=== PATIENT | female | born 1935 | race Caucasian/White ===

== ENCOUNTER 2017-09-21 19:09 | Inpatient (IN) | payer MEDICARE, OTHER ==
[~2017-09-21] VITALS: Ht 157.5 cm; Wt 79.1 kg
[~2017-09-21 19:09] MED LIST: ABAC300; ACET325 PO; AMIO200 PO; AMIODARONE HCL100 MG PO; AMLO5 PO; AMOCLA875 PO; ASCO500 PO; ASPI81EC PO; AZIT250 PO; Aspir-Low81 MG PO; Augmentin 875-1 EACH PO; BIOTIN5000 MCG PO; BISA10S PR; BISA5EC PO; CEFP200 PO; CEPH250A PO; CHOL10002 PO; CLOP75 PO; DEPLIN-ALGAL O1 EAC1 PO; DIGO.125 PO; DIPATR PO; DOCU100 PO; DOXY100 PO; DRON400T PO; DULO30 PO; DULO60 PO; ENTRESTO 24 MG1 EACH PO; FLUO.01TC TOP; FLUSAL2505 IH; FOLTANX TABLET1 EACH PO; FURO40 PO; Fish Oil 10001000 MG PO; Flagyl500 MG PO; GLIP2.5ER PO; HERBLAX PO; HYDACE5 PO; HYDACE5325 PO; HYDR1TAB94 PO; Hair, Skin & N1 EACH PO; IBUP400 PO; INSLI100I SC; Janumet 50-1,01 EACH PO; L-LYSINE500 MG PO; LEVSOD100 PO; LEVSOD125 PO; LEVSOD88 PO; LORA10ER PO; LOSA50 PO; MAGCIT300 PO; MAGOXI400 PO; METANX; METANX CAPSULE1 EACH PO; METANX PO; METF500 PO; METF500C PO; METO25 PO; METO25ER PO; METO50ER PO; METR500 PO; MIRALAX17 GM PO; MULVITA PO; MUPI2TC TOP; MUPI2TO TOP; MYRBETRIQ25 MG PO; NIAC500 PO; NIAC500ER PO; NITR.4SL SL; NITR.6SL SL; NYST100000 PO; NYST100SU MT; Novolog Fl100 UNIT/1 INJ; OMEP20ER PO; ONDA4ODT MM; OXYC5 PO; POLY17UD PO; POTA10T PO; POTA20PAC PO; POTCHL10ER PO; PROBIOTIC1 EAC1 PO; PROM12.5S PR; PROM25 PO; PROM25S PR; Pacerone100 MG PO; Prilosec Otc20 MG PO; RANI150 PO; ROBITUSSIN COU118 M1 PO; ROPI1 PO; SERT50 PO; SITA100T2 PO; SITA50T2 PO; TOCO1000 PO; VIT1CAPS12 PO; VITAMIN D-32000 UNIT PO; WARF2.5 PO; WARF5 PO; WARF7.5 PO; XARELTO20 MG PO; Zofran4 MG PO; Zovirax Cream 5%2 GM; [UNRECOGNIZED DRUG - OTHER] PO
[2017-09-21 19:38] LABS: BASOPHILS ABSOLUTE AUTO 0.03 K/mm3 (0.00-0.23); BASOPHILS PERCENT AUTO 0 % (0-2); EOSINOPHILS ABSOLUTE AUTO 0.16 K/mm3 (0.00-0.68); EOSINOPHILS PERCENT AUTO 2 % (0-6); Hematocrit 39.8 % (33.0-51.0); Hemoglobin 12.8 g/dL (11.5-16.0); IMMATURE GRAN ABSOLUTE AUTO 0.03 K/mm3 (0.00-0.10); IMMATURE GRAN PERCENT AUTO 0 % (0-1); LYMPHOCYTES ABSOLUTE AUTO 1.51 K/mm3 (0.84-5.20); LYMPHOCYTES PERCENT AUTO 20 % (21-46); MONOCYTES ABSOLUTE AUTO 0.86 K/mm3 (0.16-1.47); MONOCYTES PERCENT AUTO 11 % (4-13); Mean Corpuscular HGB 31.8 pg (26.0-34.0); Mean Corpuscular HGB Conc 32.2 g/dL (31.5-36.5); Mean Corpuscular Volume 99 fL (80-100); Mean Platelet Volume 10.4 fL (9.1-12.4); NEUTROPHILS ABSOLUTE AUTO 5.04 K/mm3 (1.96-9.15); NEUTROPHILS PERCENT AUTO 66 % (41-73); Platelet Count 206 K/mm3 (150-400); Red Blood Cell Count 4.02 M/mm3 (3.80-5.20); White Blood Cell Count 7.63 K/mm3 (4.00-11.30)
[2017-09-21 19:51] LABS: Alanine Aminotransfer (ALT/SGP 27 U/L (12-78); Albumin, Blood 3.6 g/dL (3.4-5.0); Alk Phos 96 U/L (50-136); Anion Gap 4 mmol/L (6-16); Aspartate Aminotrans (AST/SGOT 29 U/L (12-37); Bilirubin, Total 0.4 mg/dL (0.1-1.0); Blood Urea Nitrogen 21 mg/dL (8-24); Bun/Creatinine Ratio 30.8 (12.0-20.0); CO2, Blood 29 mmol/L (21-32); Calcium, Blood 8.8 mg/dL (8.5-10.1); Chloride, Blood 108 mmol/L (98-108); Creatinine, Blood 0.68 mg/dL (0.40-1.00); Globulin, Blood 3.7 g/dL (2.2-4.0); Glomerular Filtration Rate >60 (60-); Glucose, Blood 196 mg/dL (70-99); Potassium, Blood 4.6 mmol/L (3.5-5.5); Sodium, Blood 141 mmol/L (136-145); Total Protein, Blood 7.3 g/dL (6.4-8.2); Troponin I <0.015 ng/mL (0.000-0.040)
[2017-09-21 21:26] LABS: Source, Urine Clean Catch
[2017-09-21 21:40] LABS: Appearance, Urine Clear (Clear); Bilirubin, Urine Neg (Neg); Blood, Urine Neg (Neg); Color, Urine Yellow (P-Yellow); Glucose Qualitative, Urine Neg (Neg); Ketones, Urine Neg (Neg); Leukocyte Esterase, Urine 1+ (Neg); Nitrite, Urine Neg (Neg); Protein, Urine Neg (Neg); Specific Gravity, Urine 1.015 (1.003-1.022); Urobilinogen, Urine 1+ (Normal); pH, Urine 6.5 (5.0-8.0)
[2017-09-21 21:41] LABS: Bacteria Few /hpf; Red Blood Cells, Urine 0-2 /hpf (0-2); Squamous Epithelial Cells Few /hpf (Few)
[2017-09-22 03:43] LABS: BASOPHILS ABSOLUTE AUTO 0.03 K/mm3 (0.00-0.23); BASOPHILS PERCENT AUTO 0 % (0-2); EOSINOPHILS ABSOLUTE AUTO 0.21 K/mm3 (0.00-0.68); EOSINOPHILS PERCENT AUTO 3 % (0-6); Hematocrit 36.2 % (33.0-51.0); Hemoglobin 11.7 g/dL (11.5-16.0); IMMATURE GRAN ABSOLUTE AUTO 0.02 K/mm3 (0.00-0.10); IMMATURE GRAN PERCENT AUTO 0 % (0-1); LYMPHOCYTES ABSOLUTE AUTO 1.76 K/mm3 (0.84-5.20); LYMPHOCYTES PERCENT AUTO 24 % (21-46); MONOCYTES ABSOLUTE AUTO 0.96 K/mm3 (0.16-1.47); MONOCYTES PERCENT AUTO 13 % (4-13); Mean Corpuscular HGB 31.6 pg (26.0-34.0); Mean Corpuscular HGB Conc 32.3 g/dL (31.5-36.5); Mean Corpuscular Volume 98 fL (80-100); Mean Platelet Volume 10.7 fL (9.1-12.4); NEUTROPHILS PERCENT AUTO 60 % (41-73); Platelet Count 194 K/mm3 (150-400); RDW Coefficient Variation 14.1 % (11.7-14.2); RDW Standard Deviation 50.2 fL (35.1-46.3); White Blood Cell Count 7.38 K/mm3 (4.00-11.30)
[2017-09-22 04:02] LABS: Alanine Aminotransfer (ALT/SGP 22 U/L (12-78); Albumin, Blood 3.1 g/dL (3.4-5.0); Albumin/Globulin Ratio 0.9 (0.8-1.8); Alk Phos 76 U/L (50-136); Anion Gap 6 mmol/L (6-16); Aspartate Aminotrans (AST/SGOT 16 U/L (12-37); Bilirubin, Total 0.5 mg/dL (0.1-1.0); Blood Urea Nitrogen 18 mg/dL (8-24); Bun/Creatinine Ratio 29.4 (12.0-20.0); CO2, Blood 30 mmol/L (21-32); Calcium, Blood 8.3 mg/dL (8.5-10.1); Chloride, Blood 108 mmol/L (98-108); Creatinine, Blood 0.61 mg/dL (0.40-1.00); Globulin, Blood 3.5 g/dL (2.2-4.0); Glomerular Filtration Rate >60 (60-); Glucose, Blood 102 mg/dL (70-99); Potassium, Blood 4.1 mmol/L (3.5-5.5); Sodium, Blood 144 mmol/L (136-145); Total Protein, Blood 6.6 g/dL (6.4-8.2)
[2017-09-22 06:09] LABS: U Amphetamine Screen Not Detected; U Barbituate Screen Not Detected; U Benzodiazapine Screen Not Detected; U Buprenorphine Screen Not Detected; U Cannabinoids Screen Not Detected; U Cocaine Screen Not Detected; U Methadone Screen Not Detected; U Methamphetamine Screen Not Detected; U Opiates Screen Not Detected; U Oxycodone Screen Not Detected; U Phencyclidine Screen Not Detected; U Propoxyphene Screen Not Detected
[2017-09-22] MEDS ORDERED: [UNRECOGNIZED DRUG - OTHER] PO (06:17)
== END 2017-09-23 15:46 | disposition home or self-care (01) | DRG 640 ==
LOC: ER 19:09 → ICUW 22:38
PROVIDERS: Internal Medicine; Physician Assistant
DX: E86.0 Dehydration (principal); G93.40 Encephalopathy, unspecified; N39.0 Urinary tract infection, site not specified; J98.11 Atelectasis; I50.32 Chronic diastolic (congestive) heart failure; B96.20 Unspecified Escherichia coli [E. coli] as the cause of diseases classified elsewhere; I48.2 Chronic atrial fibrillation; I25.10 Atherosclerotic heart disease of native coronary artery without angina pectoris; J44.9 Chronic obstructive pulmonary disease, unspecified; E03.9 Hypothyroidism, unspecified; E11.51 Type 2 diabetes mellitus with diabetic peripheral angiopathy without gangrene; G47.33 Obstructive sleep apnea (adult) (pediatric); Z86.73 Personal history of transient ischemic attack (TIA), and cerebral infarction without residual deficits; Z95.1 Presence of aortocoronary bypass graft; Z95.5 Presence of coronary angioplasty implant and graft; Z95.0 Presence of cardiac pacemaker; Z79.84 Long term (current) use of oral hypoglycemic drugs; Z79.02 Long term (current) use of antithrombotics/antiplatelets; Z79.82 Long term (current) use of aspirin; Z79.899 Other long term (current) drug therapy; Z88.1 Allergy status to other antibiotic agents; Z88.8 Allergy status to other drugs, medicaments and biological substances
CPT/HCPCS: 36415; 70450; 71046; 80053; 81001; 82947; 83880; 84484; 85025; 87077; 87086; 87186; 93005; 93010; 96374; 97116; 97161; 97166; 97530; 97535; 99285; G8978; G8979; G8987; G8988; J0696; J1650; P9612

== ENCOUNTER 2017-10-24 10:09 | Emergency (ER) | payer MEDICARE, OTHER ==
[~2017-10-24] VITALS: Ht 157.5 cm; Wt 81.4 kg
[2017-10-24 10:58] LABS: BASOPHILS ABSOLUTE AUTO 0.02 K/mm3 (0.00-0.23); BASOPHILS PERCENT AUTO 0 % (0-2); EOSINOPHILS ABSOLUTE AUTO 0.21 K/mm3 (0.00-0.68); EOSINOPHILS PERCENT AUTO 3 % (0-6); Hematocrit 38.3 % (33.0-51.0); Hemoglobin 12.4 g/dL (11.5-16.0); IMMATURE GRAN ABSOLUTE AUTO 0.05 K/mm3 (0.00-0.10); IMMATURE GRAN PERCENT AUTO 1 % (0-1); LYMPHOCYTES ABSOLUTE AUTO 0.97 K/mm3 (0.84-5.20); LYMPHOCYTES PERCENT AUTO 12 % (21-46); MONOCYTES ABSOLUTE AUTO 0.94 K/mm3 (0.16-1.47); MONOCYTES PERCENT AUTO 12 % (4-13); Mean Corpuscular HGB 32.1 pg (26.0-34.0); Mean Corpuscular HGB Conc 32.4 g/dL (31.5-36.5); Mean Corpuscular Volume 99 fL (80-100); Mean Platelet Volume 10.4 fL (9.1-12.4); NEUTROPHILS ABSOLUTE AUTO 6.01 K/mm3 (1.96-9.15); NEUTROPHILS PERCENT AUTO 73 % (41-73); Platelet Count 181 K/mm3 (150-400); RDW Coefficient Variation 13.9 % (11.7-14.2); RDW Standard Deviation 50.9 fL (35.1-46.3); Red Blood Cell Count 3.86 M/mm3 (3.80-5.20)
[2017-10-24] MEDS ORDERED: GLIP2.5ER PO (11:02)
[2017-10-24] MEDS ORDERED: L-Lysine500 M1 (11:03)
[2017-10-24] MEDS ORDERED: NITR.4SL SL (11:04)
[2017-10-24] MEDS ORDERED: LEVSOD100 PO (11:05)
[2017-10-24 11:11] LABS: Alanine Aminotransfer (ALT/SGP 23 U/L (12-78); Albumin, Blood 3.2 g/dL (3.4-5.0); Albumin/Globulin Ratio 0.9 (0.8-1.8); Alk Phos 75 U/L (50-136); Anion Gap 5 mmol/L (6-16); Aspartate Aminotrans (AST/SGOT 17 U/L (12-37); Bilirubin, Total 0.9 mg/dL (0.1-1.0); Blood Urea Nitrogen 13 mg/dL (8-24); CO2, Blood 30 mmol/L (21-32); Calcium, Blood 8.5 mg/dL (8.5-10.1); Chloride, Blood 106 mmol/L (98-108); Creatinine, Blood 0.62 mg/dL (0.40-1.00); Globulin, Blood 3.6 g/dL (2.2-4.0); Glomerular Filtration Rate >60 (60-); Glucose, Blood 121 mg/dL (70-99); Potassium, Blood 4.1 mmol/L (3.5-5.5); Sodium, Blood 141 mmol/L (136-145); Total Protein, Blood 6.8 g/dL (6.4-8.2)
[2017-10-24] MEDS ORDERED: Prednisone20 MG PO (13:20)
== END 2017-10-24 14:40 | disposition home or self-care (01) ==
LOC: ER 10:09
PROVIDERS: Emergency Medicine
DX: J44.1 Chronic obstructive pulmonary disease with (acute) exacerbation (principal); Z88.8 Allergy status to other drugs, medicaments and biological substances; Z91.048 Other nonmedicinal substance allergy status; Z88.1 Allergy status to other antibiotic agents; Z79.899 Other long term (current) drug therapy; Z79.82 Long term (current) use of aspirin; Z79.84 Long term (current) use of oral hypoglycemic drugs; Z86.73 Personal history of transient ischemic attack (TIA), and cerebral infarction without residual deficits; I48.91 Unspecified atrial fibrillation; I50.9 Heart failure, unspecified
CPT/HCPCS: 36415; 71046; 80053; 83880; 85025; 93005; 93010; 94640; J1940; J2930

== ENCOUNTER 2017-12-18 16:01 | Emergency (ER) | payer MEDICARE, OTHER ==
[~2017-12-18] VITALS: Ht 157.5 cm; Wt 79.8 kg
[~2017-12-18 16:01] MED LIST changes: +L-Lysine500 M1; +Prednisone20 MG PO
[2017-12-18 16:30] LABS: BASOPHILS ABSOLUTE AUTO 0.03 K/mm3 (0.00-0.23); BASOPHILS PERCENT AUTO 0 % (0-2); EOSINOPHILS ABSOLUTE AUTO 0.17 K/mm3 (0.00-0.68); EOSINOPHILS PERCENT AUTO 2 % (0-6); Hematocrit 40.9 % (33.0-51.0); Hemoglobin 13.2 g/dL (11.5-16.0); IMMATURE GRAN ABSOLUTE AUTO 0.04 K/mm3 (0.00-0.10); IMMATURE GRAN PERCENT AUTO 1 % (0-1); LYMPHOCYTES ABSOLUTE AUTO 1.19 K/mm3 (0.84-5.20); LYMPHOCYTES PERCENT AUTO 16 % (21-46); MONOCYTES ABSOLUTE AUTO 0.92 K/mm3 (0.16-1.47); MONOCYTES PERCENT AUTO 12 % (4-13); Mean Corpuscular HGB 31.5 pg (26.0-34.0); Mean Corpuscular HGB Conc 32.3 g/dL (31.5-36.5); Mean Corpuscular Volume 98 fL (80-100); Mean Platelet Volume 10.3 fL (9.1-12.4); NEUTROPHILS ABSOLUTE AUTO 5.29 K/mm3 (1.96-9.15); NEUTROPHILS PERCENT AUTO 69 % (41-73); Platelet Count 229 K/mm3 (150-400); RDW Coefficient Variation 14.2 % (11.7-14.2); Red Blood Cell Count 4.19 M/mm3 (3.80-5.20); White Blood Cell Count 7.64 K/mm3 (4.00-11.30)
[2017-12-18 16:55] LABS: Alanine Aminotransfer (ALT/SGP 29 U/L (12-78); Albumin, Blood 3.7 g/dL (3.4-5.0); Albumin/Globulin Ratio 0.9 (0.8-1.8); Alk Phos 84 U/L (50-136); Anion Gap 7 mmol/L (6-16); Aspartate Aminotrans (AST/SGOT 20 U/L (12-37); Bilirubin, Total 0.6 mg/dL (0.1-1.0); Blood Urea Nitrogen 24 mg/dL (8-24); Bun/Creatinine Ratio 31.1 (12.0-20.0); CO2, Blood 28 mmol/L (21-32); Chloride, Blood 105 mmol/L (98-108); Creatinine, Blood 0.77 mg/dL (0.40-1.00); Globulin, Blood 3.9 g/dL (2.2-4.0); Glomerular Filtration Rate >60 (60-); Glucose, Blood 115 mg/dL (70-99); Potassium, Blood 4.1 mmol/L (3.5-5.5); Sodium, Blood 140 mmol/L (136-145); Total Protein, Blood 7.6 g/dL (6.4-8.2)
== END 2017-12-18 17:44 | disposition left against medical advice (07) ==
LOC: ER 16:01
PROVIDERS: Nurse Practitioner Family
DX: Z53.21 Procedure and treatment not carried out due to patient leaving prior to being seen by health care provider (principal)
CPT/HCPCS: 36415; 80053; 83690; 85025

== ENCOUNTER → 2018-06-08 | Outpatient (CLI) | payer MEDICARE, OTHER ==
[2018-06-11 08:19] LABS: Stool Occult Blood Guaiac 1 Neg (Neg)
[2018-06-11 08:20] LABS: Stool Occult Blood Guaiac 2 Neg (Neg)
== END | disposition home or self-care (01) ==
LOC: LAB SHORT 08:00 → LAB 08:00
PROVIDERS: Internal Medicine Gastroenterology
DX: K57.30 Diverticulosis of large intestine without perforation or abscess without bleeding (principal); R10.31 Right lower quadrant pain; Z86.010 Personal history of colon polyps
CPT/HCPCS: 82270

== ENCOUNTER → 2018-07-03 | Outpatient (CLI) | payer MEDICARE, OTHER | END | disposition home or self-care (01) | LOC: LAB SHORT 17:50 → LAB 17:50 | DX: R30.0 Dysuria (principal) | CPT/HCPCS: 87077; 87086; 87186 ==

== ENCOUNTER → 2018-07-28 | Outpatient (CLI) | payer MEDICARE, OTHER | END | disposition home or self-care (01) | LOC: LAB 12:01 → LAB SHORT 12:01 | DX: R30.0 Dysuria (principal) | CPT/HCPCS: 87077; 87086; 87186 ==

== ENCOUNTER 2018-09-06 15:16 | Observation (INO) | payer MEDICARE, OTHER ==
[~2018-09-06] VITALS: Ht 157.5 cm; Wt 79.9 kg
[~2018-09-06 15:16] MED LIST changes: -L-Lysine500 M1; +L-Lysine500 M1 PO
[2018-09-06 16:05] LABS: BASOPHILS ABSOLUTE AUTO 0.03 K/mm3 (0.00-0.23); BASOPHILS PERCENT AUTO 0 % (0-2); EOSINOPHILS ABSOLUTE AUTO 0.17 K/mm3 (0.00-0.68); EOSINOPHILS PERCENT AUTO 2 % (0-6); Hematocrit 38.6 % (33.0-51.0); IMMATURE GRAN ABSOLUTE AUTO 0.03 K/mm3 (0.00-0.10); IMMATURE GRAN PERCENT AUTO 0 % (0-1); LYMPHOCYTES ABSOLUTE AUTO 1.29 K/mm3 (0.84-5.20); LYMPHOCYTES PERCENT AUTO 16 % (21-46); MONOCYTES ABSOLUTE AUTO 0.79 K/mm3 (0.16-1.47); MONOCYTES PERCENT AUTO 10 % (4-13); Mean Corpuscular HGB 32.3 pg (26.0-34.0); Mean Corpuscular HGB Conc 31.1 g/dL (31.5-36.5); Mean Corpuscular Volume 104 fL (80-100); Mean Platelet Volume 10.8 fL (9.1-12.4); NEUTROPHILS ABSOLUTE AUTO 5.99 K/mm3 (1.96-9.15); NEUTROPHILS PERCENT AUTO 72 % (41-73); Platelet Count 190 K/mm3 (150-400); RDW Coefficient Variation 13.6 % (11.7-14.2); Red Blood Cell Count 3.72 M/mm3 (3.80-5.20)
[2018-09-06 16:14] LABS: Alanine Aminotransfer (ALT/SGP 27 U/L (12-78); Albumin, Blood 3.4 g/dL (3.4-5.0); Albumin/Globulin Ratio 0.9 (0.8-1.8); Alk Phos 84 U/L (50-136); Anion Gap 3 mmol/L (6-16); Aspartate Aminotrans (AST/SGOT 21 U/L (12-37); Bilirubin, Total 0.6 mg/dL (0.1-1.0); Blood Urea Nitrogen 17 mg/dL (8-24); Bun/Creatinine Ratio 26.9 (12.0-20.0); CO2, Blood 31 mmol/L (21-32); Calcium, Blood 8.6 mg/dL (8.5-10.1); Chloride, Blood 105 mmol/L (98-108); Creatinine, Blood 0.63 mg/dL (0.40-1.00); Globulin, Blood 3.7 g/dL (2.2-4.0); Glomerular Filtration Rate >60 (60-); Glucose, Blood 155 mg/dL (70-99); Potassium, Blood 3.9 mmol/L (3.5-5.5); Sodium, Blood 139 mmol/L (136-145); Total Protein, Blood 7.1 g/dL (6.4-8.2); Troponin I <0.015 ng/mL (0.000-0.040)
[2018-09-06] MEDS ORDERED: ESCI10 PO (17:56)
[2018-09-07 00:35] LABS: CPK Creatine Kinase 61 U/L (26-193); Troponin I <0.015 ng/mL (0.000-0.040)
--- NOTE | 2018-09-07 02:59 | NUR ---
ADMISSION: REPORT RECIEVED FROM ANTHONY SEGOVIA. PT TO UNIT AT ABOUT 2230. UPON ASSESSMENT PT IS IN NO VISABLE DISTRESS, 2 ASSIST TRANSFER FROM [facility] TO BED. ASSISTED BY WEB PRESS OPERATOR ASSISTANT AND ELSIE GARNER. PT IS A/O, VSS, DENIED CHEST PAIN OR SOB. REPORTS SOME BACK PAIN THAT IS TOLERABLE. RESPONSE TO SOME QUESTIONS IN SLOW, PT REPORTS TIRED FROM THE DAY. ADMISSION CHARTING COMPLETED, TELE VERIFIED BY ELSIE GARNER. BED ALARM ON FOR SAFETY, WILL CTM PT STATUS
--- NOTE | 2018-09-07 04:29 | NUR ---
SUMMARY: NO CHANGE SINCE ADMIT. VSS, PT IS A/O. USING BEDPAN TO VOID OR IS INCOTINANT. HAS DENIED CHEST PAIN, TELE WNL. WEARING 1L NC FOR SLEEP, SPO2 WNL. NITRO CREAM AT L CHEST TO BE REMOVED AT 1625 TODAY, WILL MAKE DAY RN AWARE. PT USING CALL LIGHT NO SAFETY CONCERNS AT THIS TIME.
[2018-09-07 07:29] LABS: Hemoglobin 11.3 g/dL (11.5-16.0); Mean Corpuscular HGB 31.6 pg (26.0-34.0); Mean Corpuscular HGB Conc 31.4 g/dL (31.5-36.5); Mean Corpuscular Volume 101 fL (80-100); Mean Platelet Volume 10.1 fL (9.1-12.4); Platelet Count 173 K/mm3 (150-400); RDW Coefficient Variation 13.5 % (11.7-14.2); Red Blood Cell Count 3.58 M/mm3 (3.80-5.20); White Blood Cell Count 6.55 K/mm3 (4.00-11.30)
[2018-09-07 07:49] LABS: Alanine Aminotransfer (ALT/SGP 23 U/L (12-78); Albumin, Blood 3.2 g/dL (3.4-5.0); Alk Phos 65 U/L (50-136); Anion Gap 4 mmol/L (6-16); Aspartate Aminotrans (AST/SGOT 15 U/L (12-37); Bilirubin, Total 0.7 mg/dL (0.1-1.0); Blood Urea Nitrogen 17 mg/dL (8-24); Bun/Creatinine Ratio 26.1 (12.0-20.0); CO2, Blood 32 mmol/L (21-32); Calcium, Blood 8.6 mg/dL (8.5-10.1); Chloride, Blood 107 mmol/L (98-108); Creatinine, Blood 0.65 mg/dL (0.40-1.00); Globulin, Blood 3.3 g/dL (2.2-4.0); Glomerular Filtration Rate >60 (60-); Glucose, Blood 109 mg/dL (70-99); Potassium, Blood 3.9 mmol/L (3.5-5.5); Sodium, Blood 143 mmol/L (136-145); Total Protein, Blood 6.5 g/dL (6.4-8.2)
[2018-09-07 07:53] LABS: CPK Creatine Kinase 67 U/L (26-193); Troponin I <0.015 ng/mL (0.000-0.040)
[2018-09-07 09:44] LABS: Source, Urine Clean Catch
[2018-09-07 09:49] LABS: Bilirubin, Urine Neg (Neg); Blood, Urine Neg (Neg); Glucose Qualitative, Urine Neg (Neg); Ketones, Urine Neg (Neg); Leukocyte Esterase, Urine 2+ (Neg); Nitrite, Urine Pos (Neg); Protein, Urine 1+ (Neg); Specific Gravity, Urine 1.015 (1.003-1.022); Urobilinogen, Urine NORM (Normal); pH, Urine 6.5 (5.0-8.0)
[2018-09-07 10:11] LABS: Appearance, Urine Hazy (Clear); Bacteria Many /hpf; Color, Urine Yellow (P-Yellow); Red Blood Cells, Urine Not Seen /hpf (0-2); Squamous Epithelial Cells Mod /hpf (Few)
--- NOTE | 2018-09-07 17:59 | NUR ---
SHE SAT UP IN THE CHAIR X2 TODAY. SHE HAS NAPPED OFF AND ON AND HAD A FEW VIOSITORS COME AND GO. SHE IS A&O. UA WAS SENT. IV ROCEPHIN HAS BEEN STARTED. CBG'S STARTED AT DINNER. IT WAS WNL. SHE DENIES PAIN OR SOB. BNP IS 487. A STRESS TEST HAS BEEN ORDERED. IT WILL BE TOMORROW IF SHE AGREES TO IT. SHE ONLY REMEMBERS ONE BACK IN 2002. SHE SAYS SHE HAD A REACTION TO IT AND ENDED UP IN ICU. 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 THIS HAS BEEN PASSED ON TO . SHE WILL DISCUSS IT WITH HER TOMORROW. CONTACT ISOLATION IN PLACE FOR RECENT ESBL IN THE URINE. TELE IS NSR WITH A FIRST DEGREE BLOCK. SHE HAS A PACEMAKER.WILL NPO HER EXCEPT WATER IN EARLY AM FOR POSSIBLE STRESS TEST. SHE HAS HAD HER O2 OFF THROUGHOUT THE DAY. SHE WEARS 2L MOSTLY AT NIGHT.
--- NOTE | 2018-09-08 04:52 | NUR ---
SUMMARY: PT A/O, PLEASANT AND SPECIFIES NEEDS. SHE C/O HAND, ARM, LEG, FEET PAIN THIS AM AND NEW ORDER FOR TYLENOL PRN RECIEVED, MED GIVEN FOR GOOD EFFECT. SHE WAS UP W/1ASSIST AND FWW TO BS FOR VOID. MEDS TOLERATED IN APPLESAUCE PER PT REQUEST. SHE REMAINS ON 2L O2 AT HS PER HOME DOSE. PT DENIED CP AND S/S CARDIAC DISTRESS. PT WAS NSR W/1ST DEGRESS BLOCK AT 60'S BPM W/PM NOTED BUT NO PACING SPIKES OBSERVED PER STAFF TOXICOLOGIST. MEPILEX INTACT TO R.HEEL FOR SBD PREVENTION. SHE WAS MADE NPO EXCEPT MEDS THIS AM FOR POSSIBLE STRESS TEST TODAY. PT HAS BEEN REFUSING D/T STATED REACTION W/PREVIOUS TEST IN 2002. AND [facility] TEAM TO F/U AND HAVE DISCUSSION SINCE DAY THOUGHT PT HAD ONE W/O EVENT SINCE. NO ACUTE CHANGES, VSS/AFEBRILE. WILL MONITOR AND REPORT TO DAY RN.
[2018-09-08 05:14] LABS: Albumin, Blood 3.3 g/dL (3.4-5.0); Anion Gap 7 mmol/L (6-16); Blood Urea Nitrogen 17 mg/dL (8-24); Bun/Creatinine Ratio 24.2 (12.0-20.0); CO2, Blood 30 mmol/L (21-32); Calcium, Blood 8.6 mg/dL (8.5-10.1); Chloride, Blood 105 mmol/L (98-108); Glomerular Filtration Rate >60 (60-); Glucose, Blood 100 mg/dL (70-99); Phosphorus, Blood 3.8 mg/dL (2.5-4.9); Sodium, Blood 142 mmol/L (136-145)
--- NOTE | 2018-09-08 09:19 | NUR ---
DR KINCAID IN TO SEE PATIEINT, DISCUSSING AND EDUCATED PT ON STRESS TEST, PT CONTINUES TO DECLINE. NEW ORDERS FROM DR KINCAID FOR CARDIOLOGY CONSULT, NOTIFIED AT 0917 ON 09/08/18
--- NOTE | 2018-09-08 10:52 | NUR ---
DR YNE AT BEDSIDE, NEW VERBAL ORDERS FOR ECHO AND IMDUR PO 60MG DAILY, START NOW. PT CONTINUES TO REFUSE STRESS TEST. WILL CONTINUE TO MONITOR
--- NOTE | 2018-09-08 12:27 | NUR ---
ECHOCARDIOGRAM COMPLETE
--- NOTE | 2018-09-08 21:04 | NUR ---
SHIFT SUMMARY PT A&OX4. CALM AND COOPERATIVE WITH CARE. PT RESTING IN BED DURING SHIFT, 1 PERSON ASSIST WITH FWW TO BSC. PT DENIES CHEST PAIN AND DIZZINESS. SOB WITH EXERITON, ON RA DURING DAY >90% ON RA. PT DENIES N/V DURING SHIFT. PT REFUSING STRESS TEST, CANCELED AND DR KINCAID NOTIFIED. NEW ORDERS FOR CARDIOLOGY CONSULT, DR YEN AT BEDSIDE DURING SHIFT. PT AND SPOUSE DISCUSSED OPTIONS AND HAVE DECIDED TO CONTINUE WITH MEDICATION MANAGEMENT AND DISCUSS INVASIVE PROCEDURES WITH THEIR CURRENT BUILDING CARPENTER HELPER OUTPATIENT, DR KINCAID AND DR YEN NOTIFIED. PT RECEIVING IV ANTIBIOTICS. PT STARTED ON IMDUR THIS AM. ECHO COMPLETED DURING SHIFT. VSS. NO OTHER ACUTE CHANGES NOTED DURING SHIFT. REPORT GIVEN TO ONCOMING RN.
--- NOTE | 2018-09-09 05:27 | NUR ---
SUMMARY: A/OX4, PLEASANT AND COOPERATIVE W/CARE AND CALLS APPROPRIATELY. PT IS 1 ASSIST [place] [facility] SHE OCCASIONALY HAS URGE INCONTINENCE W/ATTENDS CHANGED PRN. SHE'S DENIED CP, NAUSEA, DIZZINESS AND ALL OTHER S/S CARDIAC DISTRESS AND REMAINS IN NSR AT 60'S BPM PER TELEMETRY. PT CONT'S ON 2L O2 AT HS PER HOME DOSE, RESPS E/U AND SPO2 WNL. SHE REFUSED STRESS TEST DURING DAY BUT HAD ECHO DONE AND CX'D W/ WHO STARTED HER ON IMDUR. SHE WILL F/U W/ AND OUPATIENT PER HER PREFERENCE TO DETERMINE FURTHER INTERVENTIONS. SHE DENIED COMPLAINTS OTHER THEN RECIEVING TYLENOL PRN FOR TOLERABLE CONTROL OF NEUROPATHY RELATED PAIN. NO ACUTE CHANGES THIS SHIFT, VSS/AFEBRILE. WILL MONITOR AND REPORT TO DAY RN.
[2018-09-09] MEDS ORDERED: Acidophilus1 EAC1 PO (12:01)
[2018-09-09] MEDS ORDERED: CEFU500T30 PO (12:01)
[2018-09-09] MEDS ORDERED: Isosorbide Mono30 MG PO (12:02)
--- NOTE | 2018-09-09 13:19 | NUR ---
PT GETTING READY TO DISCHARGE TO HOME. ALL MEDS [facility]XED TO [facility]. VERY SUPPORTIVE WHOM MANAGES PT MEDICATIONS.
== END 2018-09-09 13:30 | disposition home or self-care (01) ==
LOC: ER 15:16 → MEDS 15:17 → ENPENDDIS 09-09 11:00 → MEDS 09-09 13:30
PROVIDERS: Emergency Medicine; Internal Medicine; ADMIT Internal Medicine
DX: R07.9 Chest pain, unspecified (principal); N39.0 Urinary tract infection, site not specified; I48.2 Chronic atrial fibrillation; B96.20 Unspecified Escherichia coli [E. coli] as the cause of diseases classified elsewhere; R10.9 Unspecified abdominal pain; I25.10 Atherosclerotic heart disease of native coronary artery without angina pectoris; I73.9 Peripheral vascular disease, unspecified; I50.32 Chronic diastolic (congestive) heart failure; E11.9 Type 2 diabetes mellitus without complications; E03.9 Hypothyroidism, unspecified; F32.9 Major depressive disorder, single episode, unspecified; J44.9 Chronic obstructive pulmonary disease, unspecified; G47.33 Obstructive sleep apnea (adult) (pediatric); I48.0 Paroxysmal atrial fibrillation; J96.11 Chronic respiratory failure with hypoxia; Z95.1 Presence of aortocoronary bypass graft; Z79.899 Other long term (current) drug therapy; Z79.02 Long term (current) use of antithrombotics/antiplatelets; Z79.84 Long term (current) use of oral hypoglycemic drugs; Z95.5 Presence of coronary angioplasty implant and graft; Z86.73 Personal history of transient ischemic attack (TIA), and cerebral infarction without residual deficits
CPT/HCPCS: 36415; 71046; 80053; 80069; 81001; 82550; 82947; 83880; 84484; 85025; 85027; 87077; 87086; 87186; 93005; 93010; 93306; 99285-25; J0696; J1650; J7050

== ENCOUNTER → 2018-11-20 | Outpatient (CLI) | payer MEDICARE, OTHER ==
[~2018-11-20] MED LIST changes: +Acidophilus1 EAC1 PO; +BUME1 PO; +CEFU500T30 PO; +ESCI5 PO; +FOLTANX RF CAP1 EACH PO; +Isosorbide Mono30 MG PO; +NYSTRITC TOP; +PRESERVISION A1 EACH PO; +Ultram50 MG PO; +XARELTO2.5 MG PO
[2018-11-20 13:55] LABS: Source, Urine Clean Catch
[2018-11-20 14:09] LABS: Bilirubin, Urine Neg (Neg); Blood, Urine Neg (Neg); Glucose Qualitative, Urine 1+ (Neg); Ketones, Urine Neg (Neg); Leukocyte Esterase, Urine Neg (Neg); Nitrite, Urine Neg (Neg); Protein, Urine Neg (Neg); Specific Gravity, Urine 1.015 (1.003-1.022); Urobilinogen, Urine NORM (Normal)
[2018-11-20 15:27] LABS: Appearance, Urine Clear (Clear); Color, Urine Yellow (P-Yellow)
== END ==
LOC: LAB SHORT 13:54 → LAB 13:54 → EDSTATUS 11-21 11:50 → LAB FUT 11-21 11:50
DX: R30.0 Dysuria (principal)
CPT/HCPCS: 81003; 87077; 87086; 87186

== ENCOUNTER 2018-11-26 15:08 | Emergency (ER) | payer MEDICARE, OTHER ==
[~2018-11-26] VITALS: Ht 157.5 cm; Wt 80.7 kg
[~2018-11-26 15:08] MED LIST changes: -Ultram50 MG PO
== END 2018-11-26 19:38 | disposition home or self-care (01) ==
LOC: ER 15:08
DX: I50.9 Heart failure, unspecified (principal); I48.91 Unspecified atrial fibrillation; I25.2 Old myocardial infarction; I25.10 Atherosclerotic heart disease of native coronary artery without angina pectoris; E11.40 Type 2 diabetes mellitus with diabetic neuropathy, unspecified; E03.9 Hypothyroidism, unspecified; Z87.440 Personal history of urinary (tract) infections; Z95.1 Presence of aortocoronary bypass graft; Z88.8 Allergy status to other drugs, medicaments and biological substances; Z79.899 Other long term (current) drug therapy
CPT/HCPCS: 71046; 83880; 84484; 93005; 93010; 96374; 99285-25; J1940

== ENCOUNTER → 2018-11-26 | Outpatient (CLI) | payer MEDICARE, OTHER ==
[2018-11-26 14:03] LABS: BASOPHILS ABSOLUTE AUTO 0.03 K/mm3 (0.00-0.23); BASOPHILS PERCENT AUTO 0 % (0-2); EOSINOPHILS ABSOLUTE AUTO 0.24 K/mm3 (0.00-0.68); EOSINOPHILS PERCENT AUTO 3 % (0-6); Hematocrit 35.8 % (33.0-51.0); Hemoglobin 11.8 g/dL (11.5-16.0); IMMATURE GRAN ABSOLUTE AUTO 0.04 K/mm3 (0.00-0.10); IMMATURE GRAN PERCENT AUTO 0 % (0-1); LYMPHOCYTES ABSOLUTE AUTO 1.32 K/mm3 (0.84-5.20); LYMPHOCYTES PERCENT AUTO 15 % (21-46); MONOCYTES ABSOLUTE AUTO 1.02 K/mm3 (0.16-1.47); MONOCYTES PERCENT AUTO 11 % (4-13); Mean Corpuscular HGB 32.1 pg (26.0-34.0); Mean Corpuscular Volume 97 fL (80-100); Mean Platelet Volume 10.1 fL (9.1-12.4); NEUTROPHILS ABSOLUTE AUTO 6.28 K/mm3 (1.96-9.15); NEUTROPHILS PERCENT AUTO 70 % (41-73); Platelet Count 190 K/mm3 (150-400); RDW Coefficient Variation 14.2 % (11.7-14.2); RDW Standard Deviation 50.4 fL (35.1-46.3); Red Blood Cell Count 3.68 M/mm3 (3.80-5.20); White Blood Cell Count 8.93 K/mm3 (4.00-11.30)
[2018-11-26 14:08] LABS: Anion Gap 8 mmol/L (6-16); Blood Urea Nitrogen 21 mg/dL (8-24); Bun/Creatinine Ratio 23.6 (12.0-20.0); CO2, Blood 31 mmol/L (21-32); Calcium, Blood 9.2 mg/dL (8.5-10.1); Chloride, Blood 102 mmol/L (98-108); Creatinine, Blood 0.89 mg/dL (0.40-1.00); Glomerular Filtration Rate >60 (60-); Glucose, Blood 78 mg/dL (70-99); Potassium, Blood 4.1 mmol/L (3.5-5.5); Sodium, Blood 141 mmol/L (136-145)
[2018-11-26 14:28] LABS: Troponin I <0.017 ng/mL (0.000-0.040)
== END | disposition home or self-care (01) ==
LOC: LAB SHORT 13:56 → LAB EV 13:56
PROVIDERS: Physician Assistant Surgical
DX: R06.02 Shortness of breath (principal)
CPT/HCPCS: 80048; 83880; 84484; 85025

== ENCOUNTER 2018-11-28 13:37 | Emergency (ER) | payer MEDICARE, OTHER ==
[~2018-11-28] VITALS: Ht 165.1 cm; Wt 78.9 kg
[2018-11-28 16:47] LABS: BASOPHILS ABSOLUTE AUTO 0.03 K/mm3 (0.00-0.23); BASOPHILS PERCENT AUTO 0 % (0-2); EOSINOPHILS PERCENT AUTO 3 % (0-6); Hematocrit 35.8 % (33.0-51.0); Hemoglobin 11.3 g/dL (11.5-16.0); IMMATURE GRAN ABSOLUTE AUTO 0.03 K/mm3 (0.00-0.10); IMMATURE GRAN PERCENT AUTO 0 % (0-1); LYMPHOCYTES ABSOLUTE AUTO 1.32 K/mm3 (0.84-5.20); LYMPHOCYTES PERCENT AUTO 17 % (21-46); MONOCYTES ABSOLUTE AUTO 0.85 K/mm3 (0.16-1.47); MONOCYTES PERCENT AUTO 11 % (4-13); Mean Corpuscular HGB 32.5 pg (26.0-34.0); Mean Corpuscular HGB Conc 31.6 g/dL (31.5-36.5); Mean Platelet Volume 10.3 fL (9.1-12.4); NEUTROPHILS ABSOLUTE AUTO 5.32 K/mm3 (1.96-9.15); NEUTROPHILS PERCENT AUTO 69 % (41-73); Platelet Count 202 K/mm3 (150-400); RDW Coefficient Variation 14.1 % (11.7-14.2); RDW Standard Deviation 53.5 fL (35.1-46.3); Red Blood Cell Count 3.48 M/mm3 (3.80-5.20); White Blood Cell Count 7.75 K/mm3 (4.00-11.30)
[2018-11-28 16:54] LABS: Mean Corpuscular Volume 103 fL (80-100)
[2018-11-28 17:06] LABS: Anion Gap 7 mmol/L (6-16); Blood Urea Nitrogen 18 mg/dL (8-24); CO2, Blood 31 mmol/L (21-32); Calcium, Blood 8.5 mg/dL (8.5-10.1); Chloride, Blood 104 mmol/L (98-108); Creatinine, Blood 0.82 mg/dL (0.40-1.00); Glomerular Filtration Rate >60 (60-); Glucose, Blood 108 mg/dL (70-99); Potassium, Blood 3.8 mmol/L (3.5-5.5); Sodium, Blood 142 mmol/L (136-145); Troponin I <0.015 ng/mL (0.000-0.040)
[2018-11-28] MEDS ORDERED: Ultram50 MG PO (17:52)
== END 2018-11-28 18:13 | disposition home or self-care (01) ==
LOC: ER 13:37
PROVIDERS: Emergency Medicine
DX: R07.9 Chest pain, unspecified (principal); J44.9 Chronic obstructive pulmonary disease, unspecified; I10 Essential (primary) hypertension; E11.9 Type 2 diabetes mellitus without complications; E03.9 Hypothyroidism, unspecified; Z86.73 Personal history of transient ischemic attack (TIA), and cerebral infarction without residual deficits; I48.2 Chronic atrial fibrillation; Z87.891 Personal history of nicotine dependence
CPT/HCPCS: 36415; 70450; 71045; 80048; 83880; 84484; 85025; 93005; 93010; 99285-25

== ENCOUNTER → 2019-05-18 | Outpatient (CLI) | payer MEDICARE, OTHER ==
[~2019-05-18] MED LIST changes: -Acidophilus1 EAC1 PO; +Aspir 8181 MG PO; -Aspir-Low81 MG PO; -BUME1 PO; +Bumetanide1 MG PO; +Culturelle1 CAP PO; +FAMO40 PO; +Nystatin15 GM TOP; +PROBIOTIC PO; +TRAM50 PO; +Ultram50 MG PO
== END | disposition home or self-care (01) ==
LOC: LAB 18:34 → LAB SHORT 18:34
DX: N39.0 Urinary tract infection, site not specified (principal)
CPT/HCPCS: 87077; 87086; 87186

== ENCOUNTER 2019-06-05 18:21 | Inpatient (IN) | payer MEDICARE, OTHER ==
[~2019-06-05] VITALS: Ht 157.5 cm; Wt 80.7 kg
[~2019-06-05 18:21] MED LIST changes: -AMIODARONE HCL100 MG PO; -Aspir 8181 MG PO; -Bumetanide1 MG PO; -Culturelle1 CAP PO; -ESCI5 PO; -FAMO40 PO; -FOLTANX RF CAP1 EACH PO; -Isosorbide Mono30 MG PO; -L-Lysine500 M1 PO; -Nystatin15 GM TOP; -POTCHL10ER PO; -PRESERVISION A1 EACH PO; -PROBIOTIC PO; -Prilosec Otc20 MG PO; -TRAM50 PO; -VITAMIN D-32000 UNIT PO; -XARELTO2.5 MG PO
[2019-06-05] MEDS ORDERED: LEVSOD125 PO ×2 (21:29)
[2019-06-05] MEDS ORDERED: Prilosec Otc20 MG PO ×2 (21:31)
[2019-06-05] MEDS ORDERED: METF500 PO ×2 (21:31)
[2019-06-05] MEDS ORDERED: POTCHL10ER PO ×2 (21:31)
[2019-06-05] MEDS ORDERED: AMIODARONE HCL100 MG PO ×2 (21:31)
[2019-06-05] MEDS ORDERED: METO50ER PO ×2 (21:32)
[2019-06-05] MEDS ORDERED: GLIP2.5ER PO ×2 (21:32)
[2019-06-05] MEDS ORDERED: ESCI5 PO ×2 (21:33)
[2019-06-05] MEDS ORDERED: Isosorbide Mono30 MG PO ×2 (21:33)
[2019-06-05] MEDS ORDERED: Bumetanide1 MG PO ×2 (21:34)
[2019-06-05] MEDS ORDERED: SITA100T2 PO ×2 (21:34)
[2019-06-05] MEDS ORDERED: ENTRESTO 24 MG1 EACH PO ×2 (21:34)
[2019-06-05] MEDS ORDERED: XARELTO2.5 MG PO ×2 (21:34)
[2019-06-05] MEDS ORDERED: CLOP75 PO ×2 (21:35)
[2019-06-05] MEDS ORDERED: FOLTANX RF CAP1 EACH PO ×2 (21:37)
[2019-06-05] MEDS ORDERED: NITR.4SL SL ×2 (21:37)
[2019-06-05] MEDS ORDERED: Aspir 8181 MG PO ×2 (21:38)
[2019-06-05] MEDS ORDERED: VITAMIN D-32000 UNIT PO ×2 (22:06)
[2019-06-05] MEDS ORDERED: PRESERVISION A1 EACH PO ×2 (22:07)
[2019-06-05] MEDS ORDERED: L-Lysine500 M1 PO ×2 (22:08)
[2019-06-05] MEDS ORDERED: [UNRECOGNIZED DRUG - OTHER] PO ×2 (22:08)
[2019-06-05] MEDS ORDERED: PROBIOTIC PO ×2 (22:57)
[2019-06-05] MEDS ORDERED: Nystatin15 GM TOP ×2 (22:58)
[2019-06-05] MEDS ORDERED: TRAM50 PO ×2 (22:58)
--- NOTE | 2019-06-06 00:26 | NUR ---
PATIENT BEING ADMITTED FOR CHF EXACERBATION, POSSIBLE PNUMONIA. BHAVIK ARRIVED TO THE FLOOR VIA GURNEY. WITH 1 ASSIST SHE WAS ABLE TO TAKE BABY STEPS TO THE BED. SHE NORMALLY USES WALKER AT HOME. IS AT BEDSIDE AND ABLE TO ANSWER QUESTIONS WITH THE PATIENT. BHAVIK STATES SHE HAS BEEN USING HER OXYGEN MORE THROUGHOUT THE DAY WHEN SHE NORMALLY ONLY USES AT NIGHT TIME. SOB STARTED ABOUT 2 DAYS AGO. PER HER WEIGHT HAS ONLY FLUCTUATED 1-2 LBS OF DIFFERENCE. EDEMA IS NOTED TO BLE +2. STATES SHE ALWAYS HAS EDEMA IN HER LEGS. LUNG SOUNDS AT THIS TIME ARE FINE CRACKLES IN THE BASES. CURRENTLY ON 2 LITERS OF O2 AND SATS ARE IN THE 90'S. RESP RATE INCREASED POSSIBLY DUE TO TRANSFER, SHE DOES GET SOB WITH EXERTION. GOT HER SETTLED INTO THE ROOM, ADMISSION COMPLETED AND DOCUMENTS SIGNED. CALL LIGHT GIVEN AND EXPLAINED. NO MEDS TO ADMINSITER. WILL CONTINUE TO MONITOR.
[2019-06-06 01:11] LABS: BASOPHILS ABSOLUTE AUTO 0.04 K/mm3 (0.00-0.23); BASOPHILS PERCENT AUTO 0 % (0-2); EOSINOPHILS ABSOLUTE AUTO 0.17 K/mm3 (0.00-0.68); EOSINOPHILS PERCENT AUTO 2 % (0-6); Hematocrit 34.6 % (33.0-51.0); Hemoglobin 10.8 g/dL (11.5-16.0); IMMATURE GRAN ABSOLUTE AUTO 0.05 K/mm3 (0.00-0.10); IMMATURE GRAN PERCENT AUTO 1 % (0-1); LYMPHOCYTES ABSOLUTE AUTO 1.48 K/mm3 (0.84-5.20); LYMPHOCYTES PERCENT AUTO 16 % (21-46); MONOCYTES ABSOLUTE AUTO 1.19 K/mm3 (0.16-1.47); MONOCYTES PERCENT AUTO 13 % (4-13); Mean Corpuscular HGB 31.5 pg (26.0-34.0); Mean Corpuscular HGB Conc 31.2 g/dL (31.5-36.5); Mean Corpuscular Volume 101 fL (80-100); Mean Platelet Volume 10.1 fL (9.1-12.4); NEUTROPHILS ABSOLUTE AUTO 6.49 K/mm3 (1.96-9.15); NEUTROPHILS PERCENT AUTO 69 % (41-73); Platelet Count 169 K/mm3 (150-400); RDW Coefficient Variation 14.1 % (11.7-14.2); RDW Standard Deviation 51.5 fL (35.1-46.3); Red Blood Cell Count 3.43 M/mm3 (3.80-5.20); White Blood Cell Count 9.42 K/mm3 (4.00-11.30)
[2019-06-06 01:30] LABS: Troponin I <0.015 ng/mL (0.000-0.040)
[2019-06-06 01:31] LABS: Anion Gap 8 mmol/L (6-16); Blood Urea Nitrogen 16 mg/dL (8-24); Bun/Creatinine Ratio 19.1 (12.0-20.0); CO2, Blood 31 mmol/L (21-32); Calcium, Blood 8.4 mg/dL (8.5-10.1); Chloride, Blood 103 mmol/L (98-108); Creatinine, Blood 0.84 mg/dL (0.40-1.00); Glomerular Filtration Rate >60 (60-); Glucose, Blood 142 mg/dL (70-99); Potassium, Blood 3.8 mmol/L (3.5-5.5); Sodium, Blood 142 mmol/L (136-145)
--- NOTE | 2019-06-06 03:00 | NUR ---
BHAVIK IS SLEEPING COMFORTABLY WITH NO SIGN OF DISTRESS. CALL LIGHT IN REACH.
--- NOTE | 2019-06-06 06:14 | NUR ---
SHIFT SUMMARY: BHAVIK ARRIVED TO THE FLOOR SHORTLY AFTER MIDNIGHT.ER HAD GIVEN HER BUMEX WHICH HELPED TO RELEIVE SOME OF THE FLUID ON HER. SHE WAS ASSISTED TO BSC ONCE AND ATTENDS WAS CHANGED. LUNG SOUNDS WERE DIMINISHED WITH SATS IN THE MID 90'S ON 2 LITERS OF O2 WHICH IS HER NORM FOR NIGHT TIME. NO COUGH OR CONGESTION WAS NOTED. SHE HAD NO COMPLAINTS, JUST SLEPT THE REST OF THE NIGHT. CALL LIGHT REMAINED WITH IN REACH AND USED APPROPRIATLY. NO FURTHER CHANGES TO REPORT.
--- NOTE | 2019-06-06 17:58 | NUR ---
1730 PT WITH REPORT OF L CHEST PAIN THAT RADIATES TO R CHEST, PT REPORTS THAT THIS HAS OCCURED TWICE THIS SHIFT. DR FRASER NOTIFIED, RECIEVED ORDERS FOR STAT EKG, AND TROPONIN. DR. FRASER REPORTED THAT SHE WILL PLACE ORDERS FOR NITRO AND TORODOL.
--- NOTE | 2019-06-06 18:36 | NUR ---
1800 PT ASSISTED TO CHAIR BY CONCRETE BLOCK MOLDER FOR DINNER, THIS RN ENTERED ROOM AND PT DENIED CHEST PAIN FOR THE PREVIOUS 15 MINUTES, NO NITRO GIVEN. EKG COMPLETED.
--- NOTE | 2019-06-07 07:30 | NUR ---
06/07/19 0640 AWAKENED FOR AM MED. DENIES ANY DISCOMFORT OR S/S THIS SHIFT. VITLAS STABLE. ASSISTED UP TO BSC FOR VOIDINGS SEVERAL TIMES LAST NIGHT.
[2019-06-07] MEDS ORDERED: Culturelle1 CAP PO ×2 (12:25)
[2019-06-07] MEDS ORDERED: FAMO40 PO ×2 (12:25)
--- NOTE | 2019-06-07 14:21 | NUR ---
SHIFT SUMMARY. 1423 PT DISHCARGED HOME VIA PERSONAL VEHICLE ACCOMPANIED AND DRIVEN BY . ESCORTED TO FACILITY ENTRANCE VIA W/C BY N CREATIVE COORDINATOR. IV REMOVED. D/C PAPERWORK REVIEWED WITH PT AND COPY PROVIDED. NEW RX FAXED TO [facility] PER PT REQUEST. PT HAS FOLLOW UP APPOINTMENT WITH DR. WARREN PREVIOUSLY FOR THIS SATURDAY. PT SPO2 GREATER THAN 95% ON RA AT TIME OF D/C, RR EQUAL AND NONLABORED. NO NEW CHANGES OR CONCERNS.
== END 2019-06-07 14:22 | disposition home or self-care (01) | DRG 291 ==
LOC: ER 18:21 → MEDS 23:24
PROVIDERS: Nurse Practitioner Acute Care; ADMIT Hospitalist
DX: I11.0 Hypertensive heart disease with heart failure (principal); J96.01 Acute respiratory failure with hypoxia; I48.21 Permanent atrial fibrillation; I50.43 Acute on chronic combined systolic (congestive) and diastolic (congestive) heart failure; I25.10 Atherosclerotic heart disease of native coronary artery without angina pectoris; E03.9 Hypothyroidism, unspecified; E11.40 Type 2 diabetes mellitus with diabetic neuropathy, unspecified; J44.9 Chronic obstructive pulmonary disease, unspecified; E66.01 Morbid (severe) obesity due to excess calories; Z88.8 Allergy status to other drugs, medicaments and biological substances; Z91.048 Other nonmedicinal substance allergy status; Z86.73 Personal history of transient ischemic attack (TIA), and cerebral infarction without residual deficits; I25.2 Old myocardial infarction; Z87.440 Personal history of urinary (tract) infections; Z95.1 Presence of aortocoronary bypass graft; Z95.5 Presence of coronary angioplasty implant and graft; Z95.0 Presence of cardiac pacemaker; Z87.891 Personal history of nicotine dependence; Z79.84 Long term (current) use of oral hypoglycemic drugs; Z79.02 Long term (current) use of antithrombotics/antiplatelets; Z79.82 Long term (current) use of aspirin; Z79.899 Other long term (current) drug therapy; Z68.32 Body mass index [BMI] 32.0-32.9, adult
CPT/HCPCS: 36415; 80048; 82947; 84484; 85025; 93005; 93010; 94762; 96374; 99285-25; A9270; J1885; J1940

== ENCOUNTER → 2019-06-05 | Outpatient (CLI) | payer MEDICARE, OTHER ==
[2019-06-05 16:58] LABS: BASOPHILS ABSOLUTE AUTO 0.03 K/mm3 (0.00-0.23); BASOPHILS PERCENT AUTO 0 % (0-2); EOSINOPHILS ABSOLUTE AUTO 0.09 K/mm3 (0.00-0.68); EOSINOPHILS PERCENT AUTO 1 % (0-6); Hematocrit 34.6 % (33.0-51.0); Hemoglobin 10.9 g/dL (11.5-16.0); IMMATURE GRAN ABSOLUTE AUTO 0.04 K/mm3 (0.00-0.10); IMMATURE GRAN PERCENT AUTO 0 % (0-1); LYMPHOCYTES ABSOLUTE AUTO 0.85 K/mm3 (0.84-5.20); LYMPHOCYTES PERCENT AUTO 9 % (21-46); MONOCYTES ABSOLUTE AUTO 1.01 K/mm3 (0.16-1.47); MONOCYTES PERCENT AUTO 11 % (4-13); Mean Corpuscular HGB 31.5 pg (26.0-34.0); Mean Corpuscular HGB Conc 31.5 g/dL (31.5-36.5); Mean Corpuscular Volume 100 fL (80-100); Mean Platelet Volume 10.3 fL (9.1-12.4); NEUTROPHILS ABSOLUTE AUTO 7.32 K/mm3 (1.96-9.15); NEUTROPHILS PERCENT AUTO 78 % (41-73); Platelet Count 180 K/mm3 (150-400); RDW Coefficient Variation 14.4 % (11.7-14.2); RDW Standard Deviation 52.5 fL (35.1-46.3); Red Blood Cell Count 3.46 M/mm3 (3.80-5.20); White Blood Cell Count 9.34 K/mm3 (4.00-11.30)
[2019-06-05 17:12] LABS: Alanine Aminotransfer (ALT/SGP 33 U/L (12-78); Albumin, Blood 3.4 g/dL (3.4-5.0); Alk Phos 81 U/L (40-126); Anion Gap 8 mmol/L (6-16); Aspartate Aminotrans (AST/SGOT 20 U/L (12-37); Bilirubin, Total 1.1 mg/dL (0.1-1.0); Blood Urea Nitrogen 17 mg/dL (8-24); Bun/Creatinine Ratio 18.3 (12.0-20.0); CO2, Blood 31 mmol/L (21-32); Calcium, Blood 8.2 mg/dL (8.5-10.1); Chloride, Blood 102 mmol/L (98-108); Creatinine, Blood 0.93 mg/dL (0.40-1.00); Globulin, Blood 3.4 g/dL (2.2-4.0); Glomerular Filtration Rate 58 (60-); Glucose, Blood 190 mg/dL (70-99); Potassium, Blood 4.4 mmol/L (3.5-5.5); Sodium, Blood 141 mmol/L (136-145); Total Protein, Blood 6.8 g/dL (6.4-8.2); Troponin I <0.017 ng/mL (0.000-0.040)
== END ==
LOC: LAB SHORT 16:54 → LAB EV 16:54
PROVIDERS: Nurse Practitioner
DX: R06.00 Dyspnea, unspecified (principal)
CPT/HCPCS: 80053; 83880; 84484; 85025

== ENCOUNTER → 2020-01-21 | Outpatient (CLI) | payer MEDICARE, OTHER ==
[~2020-01-21] MED LIST changes: +AMIODARONE HCL100 MG PO; +Aspir 8181 MG PO; +Bumetanide1 MG PO; +Culturelle1 CAP PO; +ESCI5 PO; +FAMO40 PO; +FOLTANX RF CAP1 EACH PO; +Isosorbide Mono30 MG PO; +L-Lysine500 M1 PO; +Nystatin15 GM TOP; +POTCHL10ER PO; +PRESERVISION A1 EACH PO; +PROBIOTIC PO; +Prilosec Otc20 MG PO; +TRAM50 PO; +VITAMIN D-32000 UNIT PO; +XARELTO2.5 MG PO
== END | disposition home or self-care (01) ==
LOC: LAB SHORT 14:20 → LAB 14:20
DX: N39.0 Urinary tract infection, site not specified (principal); R30.0 Dysuria
CPT/HCPCS: 87077; 87086; 87186

== ENCOUNTER 2020-06-28 01:00 | Inpatient (IN) | payer MEDICARE, OTHER ==
[~2020-06-28] VITALS: Ht 157.5 cm; Wt 77.1 kg
[~2020-06-28 01:00] MED LIST changes: +ISOSORBIDE MONO60 MG PO; -Isosorbide Mono30 MG PO; +NYSTRIT TOP; -Nystatin15 GM TOP
[2020-06-28 01:33] LABS: BASOPHILS ABSOLUTE AUTO 0.03 K/mm3 (0.00-0.23); BASOPHILS PERCENT AUTO 0 % (0-2); EOSINOPHILS ABSOLUTE AUTO 0.14 K/mm3 (0.00-0.68); EOSINOPHILS PERCENT AUTO 2 % (0-6); Hematocrit 37.3 % (33.0-51.0); Hemoglobin 11.6 g/dL (11.5-16.0); IMMATURE GRAN ABSOLUTE AUTO 0.05 K/mm3 (0.00-0.10); IMMATURE GRAN PERCENT AUTO 1 % (0-1); LYMPHOCYTES ABSOLUTE AUTO 1.46 K/mm3 (0.84-5.20); LYMPHOCYTES PERCENT AUTO 21 % (21-46); MONOCYTES ABSOLUTE AUTO 0.85 K/mm3 (0.16-1.47); MONOCYTES PERCENT AUTO 12 % (4-13); Mean Corpuscular HGB 31.8 pg (26.0-34.0); Mean Corpuscular HGB Conc 31.1 g/dL (31.5-36.5); Mean Corpuscular Volume 102 fL (80-100); Mean Platelet Volume 10.2 fL (9.1-12.4); NEUTROPHILS ABSOLUTE AUTO 4.59 K/mm3 (1.96-9.15); NEUTROPHILS PERCENT AUTO 65 % (41-73); Platelet Count 188 K/mm3 (150-400); RDW Coefficient Variation 12.4 % (11.7-14.2); RDW Standard Deviation 47.1 fL (35.1-46.3); Red Blood Cell Count 3.65 M/mm3 (3.80-5.20); White Blood Cell Count 7.12 K/mm3 (4.00-11.30)
[2020-06-28 01:48] LABS: Anion Gap 8 mmol/L (6-16); Blood Urea Nitrogen 24 mg/dL (8-24); Bun/Creatinine Ratio 20.7 (12.0-20.0); CO2, Blood 27 mmol/L (21-32); Calcium, Blood 8.6 mg/dL (8.5-10.1); Chloride, Blood 104 mmol/L (98-108); Creatinine, Blood 1.16 mg/dL (0.40-1.00); Glomerular Filtration Rate 47 (60-); Glucose, Blood 295 mg/dL (70-99); Potassium, Blood 4.3 mmol/L (3.5-5.5); Sodium, Blood 139 mmol/L (136-145); Troponin I <0.015 ng/mL (0.000-0.040)
[2020-06-28] MEDS ORDERED: TORS10 PO (05:20)
[2020-06-28] MEDS ORDERED: LEVSOD100 PO (05:20)
[2020-06-28] MEDS ORDERED: Toviaz8 MG PO (05:21)
[2020-06-28] MEDS ORDERED: METO25ER PO (05:21)
[2020-06-28] MEDS ORDERED: TRESIBA100 UNIT/2 SC (05:23)
[2020-06-28] MEDS ORDERED: XARELTO20 MG PO (05:24)
[2020-06-28] MEDS ORDERED: PRESERVISION A1 EACH PO (05:24)
[2020-06-28] MEDS ORDERED: RANOLAZINE ER500 M2 PO (05:25)
[2020-06-28] MEDS ORDERED: OMEP20ER PO (05:26)
[2020-06-28] MEDS ORDERED: PROBIOTIC1 EA13 PO (05:26)
[2020-06-28] MEDS ORDERED: [UNRECOGNIZED DRUG - OTHER] TOP (05:27)
--- NOTE | 2020-06-28 05:31 | NUR ---
PT ADMITTED FROM ER FOR R HIP FX AT APPROX 0440. PT REPORTS GLF IN BATHROOM. VSS UPON ARRIVAL. PT A&O X4 AND A RELIABLE HISTORIAN. AT BEDSIDE AND HELPFUL WITH CARE. PT COMPLAINS OF 9/10 PAIN AND MEDICATED WITH 25MCG OF FENTANYL PER ORDERS. DUNN CATHETER IN PLACE AND DRAINING TO GRAVITY. PT INCONTINENT AT BASELINE. PT PLACED ON 2LO2 PER PT BASELINE WHILE SLEEPING.
[2020-06-28 07:14] LABS: Influenza A, PCR Negative (NEGATIVE); Influenza B, PCR Negative (NEGATIVE); Resp Syncytial Virus, PCR Negative (NEGATIVE); SARS-Cov-2 (COVID-19) PCR, MMC Negative (NEGATIVE)
--- NOTE | 2020-06-28 09:02 | NUR ---
ELEVATED R HEEL ON PILLOW
[2020-06-28 09:24] LABS: Bun/Creatinine Ratio 19.6 (12.0-20.0); Calcium, Blood 8.4 mg/dL (8.5-10.1); Creatinine, Blood 1.02 mg/dL (0.40-1.00); Potassium, Blood 4.5 mmol/L (3.5-5.5)
[2020-06-28 09:39] LABS: BASOPHILS ABSOLUTE AUTO 0.03 K/mm3 (0.00-0.23); BASOPHILS PERCENT AUTO 0 % (0-2); EOSINOPHILS ABSOLUTE AUTO 0.06 K/mm3 (0.00-0.68); EOSINOPHILS PERCENT AUTO 1 % (0-6); Hematocrit 35.9 % (33.0-51.0); Hemoglobin 11.3 g/dL (11.5-16.0); IMMATURE GRAN ABSOLUTE AUTO 0.04 K/mm3 (0.00-0.10); IMMATURE GRAN PERCENT AUTO 0 % (0-1); LYMPHOCYTES ABSOLUTE AUTO 1.09 K/mm3 (0.84-5.20); LYMPHOCYTES PERCENT AUTO 10 % (21-46); MONOCYTES ABSOLUTE AUTO 1.18 K/mm3 (0.16-1.47); MONOCYTES PERCENT AUTO 11 % (4-13); Mean Corpuscular HGB 31.9 pg (26.0-34.0); Mean Corpuscular HGB Conc 31.5 g/dL (31.5-36.5); Mean Corpuscular Volume 101 fL (80-100); Mean Platelet Volume 10.3 fL (9.1-12.4); NEUTROPHILS ABSOLUTE AUTO 8.29 K/mm3 (1.96-9.15); NEUTROPHILS PERCENT AUTO 78 % (41-73); Platelet Count 170 K/mm3 (150-400); RDW Coefficient Variation 12.3 % (11.7-14.2); RDW Standard Deviation 46.8 fL (35.1-46.3); Red Blood Cell Count 3.54 M/mm3 (3.80-5.20); White Blood Cell Count 10.69 K/mm3 (4.00-11.30)
--- NOTE | 2020-06-28 11:08 | NUR ---
PALLIATIVE CARE IN TO SEE PT.
--- NOTE | 2020-06-28 11:21 | NUR ---
Brief visit this AM. Pt resting in bed and is A&OX4. Pt reports 9/10 pain. Brief discussion regarding code status and POLST. Discussed current POLST on file. Pt states "My wants the works". Inquired if these are her wishes. Pt appearing painful as evidenced by grimacing. Pt agreeable to discuss life sustaining wishes at a later time. Brief discussion regarding the potential of needing SNF after surgery. Pt reports being in agreement for SNF if this is recommended by therapy. Ended visit due to Pt's pain. Spoke with Bedside RN Marimar, reported Pt's pain and discussed case. Palliative Care will F/U when Pt's pain is managed for supportive visits.
--- NOTE | 2020-06-28 14:48 | NUR ---
PT TO PRE OP
--- NOTE | 2020-06-28 18:07 | NUR ---
SPOUSE IN ROOM AWAITING PT'S RETURN TO UNIT.
[2020-06-29 04:37] LABS: BASOPHILS ABSOLUTE AUTO 0.04 K/mm3 (0.00-0.23); BASOPHILS PERCENT AUTO 0 % (0-2); EOSINOPHILS ABSOLUTE AUTO 0.11 K/mm3 (0.00-0.68); EOSINOPHILS PERCENT AUTO 1 % (0-6); Hematocrit 32.8 % (33.0-51.0); Hemoglobin 10.5 g/dL (11.5-16.0); IMMATURE GRAN ABSOLUTE AUTO 0.05 K/mm3 (0.00-0.10); IMMATURE GRAN PERCENT AUTO 0 % (0-1); LYMPHOCYTES ABSOLUTE AUTO 1.06 K/mm3 (0.84-5.20); LYMPHOCYTES PERCENT AUTO 8 % (21-46); MONOCYTES ABSOLUTE AUTO 1.65 K/mm3 (0.16-1.47); MONOCYTES PERCENT AUTO 13 % (4-13); Mean Corpuscular HGB 32.5 pg (26.0-34.0); Mean Corpuscular Volume 102 fL (80-100); Mean Platelet Volume 10.2 fL (9.1-12.4); NEUTROPHILS ABSOLUTE AUTO 10.07 K/mm3 (1.96-9.15); NEUTROPHILS PERCENT AUTO 78 % (41-73); Platelet Count 155 K/mm3 (150-400); RDW Coefficient Variation 12.4 % (11.7-14.2); RDW Standard Deviation 46.3 fL (35.1-46.3); Red Blood Cell Count 3.23 M/mm3 (3.80-5.20); White Blood Cell Count 12.98 K/mm3 (4.00-11.30)
[2020-06-29 04:52] LABS: Bun/Creatinine Ratio 14.9 (12.0-20.0); Calcium, Blood 8.2 mg/dL (8.5-10.1); Creatinine, Blood 1.21 mg/dL (0.40-1.00); Magnesium, Blood 2.1 mg/dL (1.6-2.4); Potassium, Blood 4.5 mmol/L (3.5-5.5)
--- NOTE | 2020-06-29 05:35 | NUR ---
SHIFT SUMMARY: PT POD#1 FOR A R HIP PINNING. DRESSING/PRESSURE TAPE C/D/I TO RIGHT HIP. PT HAS BEEN REPOSITIONED THROUGHOUT NIGHT FOR COMFORT. PT C/O A BURNING PAIN TO RT LEG THIS MORNING AND MEDICATED WITH ULTRAM WHICH WAS EFFECTIVE. ICE PACKS IN PLACE. DRESSING ON RIGHT HEEL CHANGED THIS SHIFT. RT HEEL ELEVTAED OVER NIGHT. PICTURES TAKEN AND PLACED IN CHART. DUNN DRAINING CLOUDY YELLOW URINE. PT DROWSY MOST OF SHIFT. AWAKENS EASILY. TOLERATING MEDICATIONS WHOLE IN APPLE SAUCE AND TAKING SIPS OF WATER THROUGHOUT NIGHT.
--- NOTE | 2020-06-29 12:18 | NUR ---
06/29/20 1218 Coco Coleman VERIFICATIONS: EDIT CHART.
--- NOTE | 2020-06-29 18:04 | NUR ---
SHIFT SUMMARY POD1 R HIP PINNING. PT REPORTS CONSTANT PAIN, PAIN MANAGED W/ ULTRAM AND TYLENOL. PT WORKED WITH THERAPY TODAY. PT UNABLE STAND BUT ABLE TO SIT AT EOB. SHE IS 2 PERSON MAX ASSIST. DUNN CATH INTACT, PATENT. LUNG SOUNDS ARE CLEAR BUT DIMINISHED. ENC DEEP BREATHING EX AND USE OF I/S. PRESSURE ULCER ON R HEEL, DRESSING CHANGED. DR SANCHEZ ALSO CAME IN TODAY TO SEE PT AND SURGICAL DRESSING WAS CHANGED. PT REPORTS NAUSEA AFTER WORKING WITH THERAPIST TODAY. IT HAS IMPROVED AFTER A DOSE OF ZOFRAN. ON BEDSIDE. CALL LIGHT W/IN REACH.
--- NOTE | 2020-06-30 05:58 | NUR ---
SHIFT SUMMARY PT HAS BEEN A/O OVERNIGHT. C/O PAIN TWICE AND MED PER ORDERS. DRESSING TO R HIP CDI. PT HAS BEEN SLEEPING MOST OF THE NIGHT. TAKING PILLS WHOLE WITH APPLESAUCE. USING 2L O2 NC AT NIGHT, WHICH IS BASELINE FOR HER. SHAUN PATENT, STAT LOCK ON. PT RESTING IN BED AT THIS TIME, CALL LIGHT IN REACH.
[2020-06-30 18:00] LABS: Influenza A, PCR NEGATIVE (NEGATIVE); Influenza B, PCR NEGATIVE (NEGATIVE); Resp Syncytial Virus, PCR NEGATIVE (NEGATIVE); SARS-Cov-2 (COVID-19) PCR, MMC NEGATIVE (NEGATIVE)
--- NOTE | 2020-06-30 18:29 | NUR ---
SHIFT SUMMARY PT A&OX4, VSS, MATEO PO, PAIN MANAGED WITH ULTRAM, TYLENOL AND TORADOL, STOOD/TRANSFERRED TO CHAIR/BED MAX ASSIST. DUNN REMOVED AT 1400, AWAITING VOID (SNF AWARE), BOWEL CARE PROVIDED, AWAITING BM (SNF AWARE), CALLED IN COVID NEG RESULT/FAXED OVER RESULT. LEFT FLOOR WITH TRANSPORT TO GO TO [facility], ENVELOPE WITH SCRIPT INSIDE PROVIDED.REPORT CALLED TO GRACIELA. MARKO BORJAS.
== END 2020-06-30 18:10 | DRG 481 ==
LOC: ER 01:00 → SURS 04:37
PROVIDERS: Emergency Medicine; Internal Medicine; Orthopaedic Surgery; ADMIT Internal Medicine
PROC: 0QS634Z Reposition Right Upper Femur with Internal Fixation Device, Percutaneous Approach (ICD-10-PCS; principal; 2020-06-28 15:45)
DX: S72.001A Fracture of unspecified part of neck of right femur, initial encounter for closed fracture (principal); I50.32 Chronic diastolic (congestive) heart failure; J96.11 Chronic respiratory failure with hypoxia; E03.9 Hypothyroidism, unspecified; E11.40 Type 2 diabetes mellitus with diabetic neuropathy, unspecified; Z20.822 Contact with and (suspected) exposure to COVID-19; E11.42 Type 2 diabetes mellitus with diabetic polyneuropathy; G47.33 Obstructive sleep apnea (adult) (pediatric); I25.10 Atherosclerotic heart disease of native coronary artery without angina pectoris; I48.91 Unspecified atrial fibrillation; I73.9 Peripheral vascular disease, unspecified; J44.9 Chronic obstructive pulmonary disease, unspecified; E11.22 Type 2 diabetes mellitus with diabetic chronic kidney disease; N18.30 Chronic kidney disease, stage 3 unspecified; W18.30XA Fall on same level, unspecified, initial encounter; Z86.73 Personal history of transient ischemic attack (TIA), and cerebral infarction without residual deficits; Z87.891 Personal history of nicotine dependence; Z95.0 Presence of cardiac pacemaker; Z95.1 Presence of aortocoronary bypass graft; R54 Age-related physical debility; Z79.01 Long term (current) use of anticoagulants; Z95.5 Presence of coronary angioplasty implant and graft
CPT/HCPCS: 0241U; 36415; 51702; 72192; 73502; 73560-RT; 80048; 82947; 83735; 84484; 85025; 93005; 93010; 96374-59; 97110; 97162; 97166; 97530; 97535; 99285-25; A9270; C1713; C1769; J0690; J1885; J2370; J2405; J2704; J3010; J7120

== ENCOUNTER 2020-08-27 19:36 | Inpatient (IN) | payer MEDICARE, OTHER ==
[~2020-08-27] VITALS: Ht 152.4 cm; Wt 76.5 kg
[~2020-08-27 19:36] MED LIST changes: +PROBIOTIC1 EA13 PO; +RANOLAZINE ER500 M2 PO; +TORS10 PO; +TRESIBA100 UNIT/2 SC; +Toviaz8 MG PO; +[UNRECOGNIZED DRUG - OTHER] TOP
[2020-08-27 20:10] LABS: Calcium, Ionized (POC) 1.15 mmol/L (1.10-1.46); Chloride (POC) 104 mmol/L (98-108); Glucose (ISTAT POC) 246 mg/dL (70-99); Hemoglobin (POC) 11.2 g/dL (12.0-16.0); Potassium (POC) 4.8 mmol/L (3.5-5.5); Sodium (POC) 140 mmol/L (135-148); Total CO2 (POC) 29 mmol/L (21-32)
[2020-08-27 20:19] LABS: BASOPHILS ABSOLUTE AUTO 0.05 K/mm3 (0.00-0.23); BASOPHILS PERCENT AUTO 1 % (0-2); EOSINOPHILS ABSOLUTE AUTO 0.39 K/mm3 (0.00-0.68); EOSINOPHILS PERCENT AUTO 5 % (0-6); Hematocrit 32.5 % (33.0-51.0); Hemoglobin 9.8 g/dL (11.5-16.0); IMMATURE GRAN ABSOLUTE AUTO 0.05 K/mm3 (0.00-0.10); IMMATURE GRAN PERCENT AUTO 1 % (0-1); LYMPHOCYTES ABSOLUTE AUTO 1.43 K/mm3 (0.84-5.20); LYMPHOCYTES PERCENT AUTO 17 % (21-46); MONOCYTES ABSOLUTE AUTO 0.99 K/mm3 (0.16-1.47); MONOCYTES PERCENT AUTO 12 % (4-13); Mean Corpuscular HGB 31.1 pg (26.0-34.0); Mean Corpuscular HGB Conc 30.2 g/dL (31.5-36.5); Mean Corpuscular Volume 103 fL (80-100); Mean Platelet Volume 10.4 fL (9.1-12.4); NEUTROPHILS ABSOLUTE AUTO 5.65 K/mm3 (1.96-9.15); NEUTROPHILS PERCENT AUTO 66 % (41-73); Platelet Count 295 K/mm3 (150-400); RDW Coefficient Variation 16.3 % (11.7-14.2); RDW Standard Deviation 62.2 fL (35.1-46.3); Red Blood Cell Count 3.15 M/mm3 (3.80-5.20); White Blood Cell Count 8.56 K/mm3 (4.00-11.30)
[2020-08-27] MEDS ORDERED: ESCI5 PO (20:22)
[2020-08-27] MEDS ORDERED: METO25 PO (20:25)
[2020-08-27] MEDS ORDERED: PANT40 PO (20:27)
[2020-08-27] MEDS ORDERED: Acetaminophen325 M1 PO (20:29)
[2020-08-27] MEDS ORDERED: TRAM50 PO (20:31)
[2020-08-27] MEDS ORDERED: MIRALAX17 GM PO (20:31)
[2020-08-27 20:35] LABS: Anion Gap 7 mmol/L (6-16); Blood Urea Nitrogen 16 mg/dL (8-24); Bun/Creatinine Ratio 16.4 (12.0-20.0); CO2, Blood 27 mmol/L (21-32); Calcium, Blood 8.7 mg/dL (8.5-10.1); Chloride, Blood 107 mmol/L (98-108); Creatinine, Blood 0.98 mg/dL (0.40-1.00); Glomerular Filtration Rate 58 (60-); Glucose, Blood 257 mg/dL (70-99); Potassium, Blood 4.8 mmol/L (3.5-5.5); Sodium, Blood 141 mmol/L (136-145); Troponin I <0.015 ng/mL (0.000-0.040)
--- NOTE | 2020-08-28 07:26 | NUR ---
ADMIT NOTE/SHIFT SUMMARY PATIENT ADMITTED FROM ER EARLIER THIS SHIFT. PATIENT SLID OVER FROM THE GURNEY TO THE BED VIA SLIDDER SHEET. PATIENT SETTLED IN AND ORIENTED TO THE ROOM, UNIT, AND CALL LIGHT. PATIENT PLEASENT AND COOPERATIVE, SOFT SPOKEN. PEDAL PULSES FOUND VIA DOPPLER AND MARKED. PATIENT ASSISTED WITH TURNNING AND REPOSITIONING LAST NIGHT. HEELS FLOATED ON A PILLOW TO KEEP OFF THE BED. PATIENT APPEARED TO SLEEP WELL THROUGHOUT MOST OF THE REST OF THE NIGHT AFTER ADMIT. STATED THAT PATIENT HAD A RECENT HIP FRACTURE. REPORT GIVEN TO ONCOMING RN.
--- NOTE | 2020-08-28 14:00 | NUR ---
PT A&O T/OUT THE MORNING, CONTINUES TO BE WEAK AND REQUIRING 2 PERSON ASSIST TO BSC. PT STATES IMPROVEMENT OF PAIN IN CHEST SINCE ADMISSION, DOES C/O PAIN TO RT SIDE WHICH SHE ATTRIBUTES TO CARE FACILITY STAFF HELPING HER. PT'S ARRIVED TO BEDSIDE TO MEET WITH HOSPITALIST AT THE BEDSIDE. MEETING HAS TAKEN PLACE, PT HAS AGREED TO CONSULTATION WITH CARDIOLOGY AND POSSIBLE INTERVENTION. DR SALDIVAR HAS BEEN NOTIFIED. PT HAS BEEN TRANSFERED TO MEDICAL DEPT. REPORT GIVEN TO ANTHONY SANDS.
--- NOTE | 2020-08-28 15:03 | NUR ---
PT TRANSFERRED TO ROOM 359 FROM PCU 5 BED TO BED TX. PT ACCOMPANYING PT. ORIENTED TO ROOM AND SET UP AND GOT PT AND WATER. PT ORINTED TO CALL LIGHT AND INSTRUCTED TO CALL FOR HELP TO NEVER GET UP UNATTENDED.
[2020-08-28] MEDS ORDERED: PACERONE100 M1 PO (16:29)
[2020-08-28] MEDS ORDERED: OMEP20ER PO (16:31)
[2020-08-28] MEDS ORDERED: Toviaz8 MG PO (16:39)
[2020-08-28] MEDS ORDERED: ENTRESTO 49 MG1 EACH PO (16:40)
[2020-08-28] MEDS ORDERED: PRESERVISION A1 EAC1 PO (16:41)
[2020-08-28] MEDS ORDERED: NYSTATIN15 GM TOP (16:42)
[2020-08-28] MEDS ORDERED: NITR.4SL SL (16:44)
[2020-08-28] MEDS ORDERED: [UNRECOGNIZED DRUG - OTHER] TOP (16:53)
[2020-08-28] MEDS ORDERED: L-LYSINE500 MG PO (16:56)
--- NOTE | 2020-08-28 18:04 | NUR ---
CALLED DR SZYMANSKI TO INFORM PT NOT TOLERATING FOOD OR FLUIDS. PT STATES MILD CHEST PRESSURE UPPER CHEST UNCHANGED ALL DAY. BNP IS 1214, AND NO IVF OR OTHER INTERVENTIONS WARRENTED AT THIS TIME.
--- NOTE | 2020-08-28 18:15 | NUR ---
SUMMARY- PT SLEEPY BUT AROUSABLE. AT BEDSIDE UNTIL 1700 AND WENT HOME. PT UNABLE TO TOLERATE DINNER AND BECAME NAUSEATED. PT STATES CONT CHEST PRESSURE UPPER CHEST REMAINS THE SAME, NO CHANGES ALL DAY. CALLED NESSA NO NOTIFY THAT PT IS NPO AFTER MN FOR POSSIBLE ANGIO AND UNABLE TO TOLERATE PO. NO ORDERS AT THIS TIME. WILL REPORT TO MADIE CRUZ.
--- NOTE | 2020-08-29 03:56 | NUR ---
SHIFT SUMMARY PATIENT HAD NO ACUTE CHANGES OBSERVED. AXO X3 WITH FLAT AFFECT. TWO PERSON ASSIST TO BSC. NPO FOR ANGIOGRAM. PIVS REMAIN INTACT. PROFILE GRINDER TECHNICIAN REPORTS PACED @60. VSS/AFEBRILE. DENIES PAIN, SOB, AND N/V. CALL LIGHT IN REACH. BED IN LOWEST POSITION. WILL CONTINUE TO MONITOR UNTIL DAY SHIFT NURSE ASSUMES CARE.
[2020-08-29 04:59] LABS: BASOPHILS ABSOLUTE AUTO 0.05 K/mm3 (0.00-0.23); BASOPHILS PERCENT AUTO 1 % (0-2); EOSINOPHILS ABSOLUTE AUTO 0.28 K/mm3 (0.00-0.68); EOSINOPHILS PERCENT AUTO 3 % (0-6); Hematocrit 30.4 % (33.0-51.0); Hemoglobin 9.5 g/dL (11.5-16.0); IMMATURE GRAN ABSOLUTE AUTO 0.05 K/mm3 (0.00-0.10); IMMATURE GRAN PERCENT AUTO 1 % (0-1); LYMPHOCYTES ABSOLUTE AUTO 1.77 K/mm3 (0.84-5.20); LYMPHOCYTES PERCENT AUTO 19 % (21-46); MONOCYTES ABSOLUTE AUTO 1.01 K/mm3 (0.16-1.47); MONOCYTES PERCENT AUTO 11 % (4-13); Mean Corpuscular HGB Conc 31.3 g/dL (31.5-36.5); Mean Corpuscular Volume 102 fL (80-100); Mean Platelet Volume 10.5 fL (9.1-12.4); NEUTROPHILS ABSOLUTE AUTO 5.95 K/mm3 (1.96-9.15); NEUTROPHILS PERCENT AUTO 65 % (41-73); Platelet Count 271 K/mm3 (150-400); RDW Coefficient Variation 16.4 % (11.7-14.2); RDW Standard Deviation 61.4 fL (35.1-46.3); Red Blood Cell Count 2.97 M/mm3 (3.80-5.20); White Blood Cell Count 9.11 K/mm3 (4.00-11.30)
[2020-08-29 05:19] LABS: Anion Gap 7 mmol/L (6-16); Blood Urea Nitrogen 17 mg/dL (8-24); Bun/Creatinine Ratio 18.1 (12.0-20.0); CO2, Blood 27 mmol/L (21-32); Chloride, Blood 106 mmol/L (98-108); Creatinine, Blood 0.94 mg/dL (0.40-1.00); Glomerular Filtration Rate >60 (60-); Glucose, Blood 144 mg/dL (70-99); Potassium, Blood 4.4 mmol/L (3.5-5.5); Sodium, Blood 140 mmol/L (136-145)
--- NOTE | 2020-08-29 05:22 | NUR ---
COVID-19 SWAB COMPLETED AND SENT TO LAB.
[2020-08-29 06:03] LABS: Influenza A, PCR NEGATIVE (NEGATIVE); Influenza B, PCR NEGATIVE (NEGATIVE); Resp Syncytial Virus, PCR NEGATIVE (NEGATIVE); SARS-Cov-2 (COVID-19) PCR, MMC NEGATIVE (NEGATIVE)
--- NOTE | 2020-08-29 15:01 | NUR ---
PT AOX3 AND VERY TIRED TODAY. PT DENIED PAIN AND WAS VERY SLEEPY. PT IS INCONTENT AND DOES BETTER WITH TWO PEOPLE TO HELP TURN. PT WAS TAKEN OUT FOR ANGIOGRAM AND REPORT WAS GIVEN WHEN PCU NURSE RECIEVED PT. PT OVER ALL LOOKED VERY WEAK AND TIRED TODAY.
--- NOTE | 2020-08-29 17:19 | NUR ---
BROUGHT TO PCU FROM [facility]. UNABLE TO COMPLETE ANGIO DUE TO LAST XERALTO DOSE BEING 08/27. REPORT FROM MEDICAL FLOOR RN. PLAN FOR ANGIO TOMORROW, NPO AFTER MIDNIGHT. A/A/0X3. DENIES CP AT THIS TIME. RECOVERING FROM [facility] FEMUR AT [facility] WHEN NEW CHEST PAIN BEGAN. BEDREST AT THIS TIME. REPOSITIONS SELF NEEDED.WILLCONTINUE TO MONITOR AND TREAT UNTIL CHANGE OF SHIFT.
--- NOTE | 2020-08-30 05:08 | NUR ---
SHIFT SUMMARY PT RESTED WELL THROUGH THE NIGHT. ALERT AND ORIENTED - ABLE TO MAKE NEEDS KNOWN. FLAT AFFECT. SATS >90% ON 2LNC. TELE PACED. NPO SINCE MIDNIGHT FOR ANGIO TODAY. INCONTINENT UOP X3 - ATTENDS CHANGED NEEDED. NO C/O PAIN, OR CHEST PAIN. VSS. CALL LIGHT WITHIN REACH, BED IN LOWEST POSITION. BED ALARM ON. WILL CONTINUE TO MONITOR.
--- NOTE | 2020-08-30 09:30 | NUR ---
PT WAS TAKEN TO HORSE RACETRACK MANAGER FOR ANGIO PROCEDURE AT THIS TIME. VITALS THIS AM HRR PACED AT 60'S, BP SYSTOLIC 130'S, SATS ABOVE 92% ON RA, AFEBRILE. PT HAS HAD PAIN ON RIGHT LEG PT RECEIVED TRAMADOL BEFORE SHIFT CHANGE, PT ALERT AND ORIENTED X3, RESPONSIVE TO QUESTIONS. PT WAS ABLE TO TAKE MEDS WHOLE WITH WATER ONE AT A TIME WITH NO ISSUES, THREW UP A LITTLE BIT BEFORE PT WAS TAKEN TO HORSE RACETRACK MANAGER YELLOW EMESIS. ATTENDS CHANGED WELL. WILL CONTINUE TO MONITOR
--- NOTE | 2020-08-30 13:04 | NUR ---
Patient is in heart center and is having a system shut down. CPR and vent in progress. I sit with patient's spouse, Jerry, in a rm across the blunt from patient's surgery rm. I conduct a life review, provide prayer and provide emotional support until TOD. I continue grief support, discuss homes and provide additional prayer once Jerry is rejoined with Mrs. Bryson. Jerry then requests time alone to call his children and his LDS Doe. I remain available
== END 2020-08-30 15:09 | DRG 247 ==
LOC: ER 19:36 → PCU 19:37 → MEDS 08-28 13:45 → PCU 08-29 14:33 → ICUE 08-30 11:22 → PCU 08-30 12:22
PROVIDERS: Internal Medicine; Internal Medicine Cardiovascular Disease; Student in an Organized Health Care Education/Training Program; ADMIT Internal Medicine
PROC: 5A12012 Performance of Cardiac Output, Single, Manual (ICD-10-PCS; principal; 2020-08-30)
PROC: 027034Z Dilation of Coronary Artery, One Artery with Drug-eluting Intraluminal Device, Percutaneous Approach (ICD-10-PCS; 2020-08-30)
PROC: 02703ZZ Dilation of Coronary Artery, One Artery, Percutaneous Approach (ICD-10-PCS; 2020-08-30)
PROC: B2111ZZ Fluoroscopy of Multiple Coronary Arteries using Low Osmolar Contrast (ICD-10-PCS; 2020-08-30)
PROC: B2121ZZ Fluoroscopy of Single Coronary Artery Bypass Graft using Low Osmolar Contrast (ICD-10-PCS; 2020-08-30)
DX: I21.4 Non-ST elevation (NSTEMI) myocardial infarction (principal); I50.32 Chronic diastolic (congestive) heart failure; J96.11 Chronic respiratory failure with hypoxia; I31.3 Pericardial effusion (noninflammatory); I25.10 Atherosclerotic heart disease of native coronary artery without angina pectoris; E03.9 Hypothyroidism, unspecified; I46.2 Cardiac arrest due to underlying cardiac condition; G47.33 Obstructive sleep apnea (adult) (pediatric); I95.9 Hypotension, unspecified; J44.9 Chronic obstructive pulmonary disease, unspecified; Z95.0 Presence of cardiac pacemaker; Z86.73 Personal history of transient ischemic attack (TIA), and cerebral infarction without residual deficits; E11.51 Type 2 diabetes mellitus with diabetic peripheral angiopathy without gangrene; E11.42 Type 2 diabetes mellitus with diabetic polyneuropathy; Z95.1 Presence of aortocoronary bypass graft; Z20.822 Contact with and (suspected) exposure to COVID-19; Z95.5 Presence of coronary angioplasty implant and graft; Z90.710 Acquired absence of both cervix and uterus; Z98.890 Other specified postprocedural states; Z98.42 Cataract extraction status, left eye; Z98.41 Cataract extraction status, right eye; Z87.891 Personal history of nicotine dependence; Z88.1 Allergy status to other antibiotic agents; Z88.8 Allergy status to other drugs, medicaments and biological substances; Z79.899 Other long term (current) drug therapy; Z79.02 Long term (current) use of antithrombotics/antiplatelets; Z23 Encounter for immunization
CPT/HCPCS: 0241U; 31500; 36415; 36556; 71045; 80047; 80048; 82947; 83880; 84484; 85014; 85025; 85347; 92920; 92937; 93005; 93010; 93306; 93308; 93455; 96372; 99152; 99153; 99285-25; A9270; C1725; C1751; C1769; C1874; C1887; C1894; C9600; G0378; J0282; J1265; J1644; J1650; J1815; J2001; J2250; J2370; J3010; J7030; J7050; Q9967